=== PATIENT | female | born 1940 | race Two or more races ===

== ENCOUNTER 2025-05-14 19:25 | Inpatient (IN) | payer OTHER ==
[~2025-05-14] VITALS: Ht 165.1 cm; Wt 40.0 kg
[2025-05-14] MEDS: SODIUM CHLORIDE 0.9% 1,000 ML IV ONE (20:45)
[2025-05-14 21:07] LABS: Hematocrit 40.1 % (36.0-46.0); Hemoglobin 12.7 g/dL (12.2-16.2); Mean Corpuscular Hemoglobin 29.6 pg (28.0-32.0); Mean Corpuscular Volume 93.7 fL (80.0-100.0); Nucleated Red Blood Cells % 0.2 %
--- NOTE | 2025-05-14 21:18 | DVH ---
CLINICAL HISTORY: gen weak, cp, htn TECHNIQUE: Single view of the chest was obtained. COMPARISON: None FINDINGS: The heart size and pulmonary vasculature are normal. The lungs are clear. IMPRESSION: NO ACUTE CARDIOPULMONARY PROCESS.
[2025-05-14 21:34] LABS: Albumin 4.2 g/dL (3.2-4.8); Alkaline Phosphatase 67 U/L (46-116); Anion Gap 12 (5-15); BUN/Creatinine Ratio 11.7 (10.0-20.0); Calcium 9.1 mg/dL (8.7-10.4); Carbon Dioxide 24 mmol/L (20-31); Glucose 78 mg/dL (74-106); Potassium 4.3 mmol/L (3.5-5.1); Sodium 143 mmol/L (136-145); Total Protein 7.3 g/dL (5.7-8.2)
[2025-05-14 21:35] LABS: Bilirubin, Total 0.9 mg/dL (0.2-1.0)
[2025-05-14 21:38] LABS: Alanine Aminotransferase < 9 U/L (7-40); Blood Urea Nitrogen 9 mg/dL (9-23); Chloride 107 mmol/L (98-107)
[2025-05-14] MEDS: LABETALOL HCL 20 MG/4 ML VL IV ONE (22:28)
[2025-05-14 23:53] LABS: Urine Protein, UAD Negative (Negative)
[2025-05-15] VITALS (8 sets, daily range): BP systolic 149–209; BP diastolic 65–81; PULSE 58–67; RESP 16–20; TEMP 97.6–98.9; O2SAT 92–100
[2025-05-15] MEDS: LABETALOL HCL 20 MG/4 ML VL IV ONE (00:02)
[2025-05-15] MEDS: NITROGLYCERIN 0.4 MG SL TAB SL ONE ×2 (00:13→00:15)
--- NOTE | 2025-05-15 02:36 | DVH ---
EXAM: CT HEAD WITHOUT CONTRAST INDICATION: htn dizziness TECHNIQUE: CT of the head without intravenous contrast. Radiation Dose : 1. Head: CT Dose: CTDI volume is 58.89 mGy. Dose-length product is 1042.67 mGy*cm The dose indicators for CT are the volume Computed Tomography (CT) Dose Index (CTDIvol) and the Dose Length Product (DLP), and are measured in units of mGy and mGy-cm, respectively. These indicators are not patient dose, but values generated from the CT scanner acquisition factors. The report includes radiation exposure data for exposures received during this examination. COMPARISON: None FINDINGS: Brain: No acute hemorrhage, mass effect, or cerebral edema. Mild periventricular white matter hypoden sity and global parenchymal volume loss. CSF Spaces: Mild symmetric enlargement. Bones/Soft Tissues: No acute findings. Orbits/Sinuses/Mastoids: [id number] paranasal sinus disease. The orbits and mastoids are unrem arkable. IMPRESSION: 1. No acute intracranial abnormality. 2. Sequelae of mild chronic microangiopathy. Radiation optimization: All CT scans at this facility use at least one of these dose optimization james hniques: automated exposure control mA and/or kV adjustment per patient size (includes targeted exam s where dose is matched to clinical indication) or iterative reconstruction.
[2025-05-15] MEDS ORDERED: MORPHINE SULFATE INJ 2 MG/ml SYRG IV PRN (02:45)
[2025-05-15] MEDS ORDERED: DOCUSATE SOD 100 MG CAP PO PRN (02:45)
[2025-05-15] MEDS ORDERED: ACETAMINOPHEN 325 MG TAB PO PRN (02:45)
[2025-05-15] MEDS ORDERED: ONDANSETRON HCL 4 MG/2 ML VIAL IV PRN (02:45)
[2025-05-15] MEDS ORDERED: MELATONIN 5 MG TAB PO PRN (02:45)
[2025-05-15] MEDS ORDERED: NITROGLYCERIN 0.4 MG SL TAB SL PRN (02:45)
[2025-05-15 04:19] LABS: Hematocrit 34.0 % (36.0-46.0); Hemoglobin 11.1 g/dL (12.2-16.2); Mean Corpuscular Hemoglobin 30.2 pg (28.0-32.0); Mean Corpuscular Volume 92.7 fL (80.0-100.0); Nucleated Red Blood Cells % 0.2 %
[2025-05-15 04:34] LABS: Anion Gap 11 (5-15); Carbon Dioxide 25 mmol/L (20-31); Sodium 145 mmol/L (136-145)
[2025-05-15 04:36] LABS: Calcium 8.7 mg/dL (8.7-10.4)
[2025-05-15 04:37] LABS: Chloride 109 mmol/L (98-107); Potassium 3.4 mmol/L (3.5-5.1)
[2025-05-15 04:40] LABS: BUN/Creatinine Ratio 14.3 (10.0-20.0); Blood Urea Nitrogen 10 mg/dL (9-23); Glucose 102 mg/dL (74-106)
[2025-05-15] MEDS: FAMOTIDINE (10MG/ML) 2ML VL IV SCH (09:01)
[2025-05-15] MEDS: hydrALAZINE HCL 20 MG/ML VL IV PRN (09:01)
[2025-05-15] MEDS: ATORVASTATIN 20 MG TAB PO SCH (09:02)
[2025-05-15] MEDS: ENOXAPARIN SOD 30 MG/0.3 ML SYRINGE SC SCH (09:04)
--- NOTE | 2025-05-15 11:26 | ED.PDOC ---
HPI (NEURO) HPI Comments 84-year-old female who presents to the ED for chief complaint of generalized weakness. Patient states she has been having generalized weakness for the past one month stating it has been getting worse and states I can not do anything patient states that whenever she attempts to sit up from a supine position she is having difficulty and associated weakness. Patient otherwise states that she has been having chest pressure episodes intermittently but states they do not last long. Patient otherwise has noted history of hypertension but states she did not take her medication today as she states she takes it later tonight. Patient in the ED presents in wheelchair but is otherwise alert and oriented x4 and able to answer all questions. Patient otherwise denies any other symptoms Past Medical history: Hypertension, hyperlipidemia Past Surgical history: Hysterectomy Medications:Simvastatin Social history: denies EOTH, denies tobacco use, denies drug use Allergies: Denies HPI: Poor Historian. REVIEW OF SYSTEMS: CONSTITUTIONAL: Denies acute: fever, diaphoresis, chills, HEAD: Denies acute: headache, photophobia Eyes: Denies acute: Double vision, vision loss, eye pain, eye discharge. EARS: Denies acute: tinnitus, hearing loss, ear discharge, ear pain, THROAT: Denies acute: sore throat, swelling, difficulty swallowing , pain with swallowing, change in voice. NECK: Denies acute: neck pain, neck swelling, stiff neck. HEART: Denies acute : palpitations, LUNGS: Denies acute: SOB, wheezing, cough, hemoptysis ABDOMEN: Denies acute: abdominal pain, Nausea, Vomiting, diarrhea, melena , hematemesis, hematochezia SKIN: Denies acute: rash, redness, lesions, itchiness. EXTREMITIES: Denies acute: calf pain, numbness, tingling, weakness, denies pain in extremity. Denies acute: Low back pain. Neuro: Denies acute: focal neurological deficit, motor or sensory focal neurological deficit, tremors, seizure like activity, confusion, dizziness, change in mental status, loss of bowel or bladder function, cauda equina like symptoms. : Denies acute: dysuria, hematuria, flank pain, increase in urinary frequency. PSYCH: Denies acute: hallucination, suicidal ideation, homicidal ideation. FEMALE: Denies acute: abnormal vaginal bleeding, foul odor, unusual discharge. PHYSICAL EXAM: General: -----no---acute distress, awake and alert. Head: normocephalic, atraumatic. Neck: supple, trachea is midline, no swelling. Throat: Normal phonation. Eyes:, no erythema, no purulent discharge, no proptosis, no icterus. Heart: regular rate, regular rhythm, no significant murmur appreciated. Lungs: no apparent respiratory distress, Able to speak in full sentences. No wheezing, no rhonchi, no crackles. No stridors Clear to auscultation bilaterally. Abdomen: non tender to palpation, non distended, soft, no guarding, no rebound, + bowel sounds. Neuro: Awake, Alert, oriented to name, self, situation, follows commands GCS=15. Speech is normal. Skin: no petechia, no purpura, no cyanosis, non-pale, not jaundice. Lower extremities: --no - Pitting edema no deformity, no focal swelling, no calf TTP. Makes eye contact. moves all four extremities. Face: no apparent facial droop. ED COURSE: DISCLAIMER: This medical document was created using an electronic medical record system with voice recognition software and computerized dictation system. Although this document has been carefully reviewed, there might still be some phonetic and typographical errors. Occasional wrong-word or "sound-alike" substitutions may have occurred due to the inherent limitations of voice recognition software. These areas are purely typographical due to imperfections of the software programs and do not reflect any compromise in the patient's medical care. Please read the chart carefully and recognize, using context, where these substitutions have occurred. 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 Was a procedure done?: No Differential Diagnosis (SZ) CVA: Other (As far as chest pain: Ddx include but not limitied to gastritis, musculoskeletal pain, radiculopathy, atypical chest pain, dissection, aneurysm, ACS, unstable angina, hiatal hernia, GERD, anxiety, costochondritis, PE, pneumothroax, neoplasm, cardiac ischemia, drug abuse, anemia.) General Weakness: Anemia, CVA, Dehydration, Dysrhythmia, Electrolyte imbalance, Encephalopathy, Guillain-[place], Hypoglycemia, Hypotension, Hypovolemia, Labyrinthitis, Meniere's disease, Myasthenia gravis, Myocardial infarction, Pulmonary embolus, Renal failure, Repiratory failure, TIA, VBI, Vertigo: central, Vertigo: peripheral, Vestibular neuronitis, Other (Includes but not limited to thyroid disease, encephalopathy, electrolyte abnormality, sepsis, infection, intracranial pathology, drug adverse effects, arrhythmia, kidney insufficiency, ACS, CVA, malignancy, anemia) X-Ray, Labs, Meds, VS Vital Signs Date Time Temp Pulse Resp B/P (MAP) Pulse Ox O2 Delivery O2 Flow Rate FiO2 05/15/25 02:00 61 13 141/61 (87) 100 05/15/25 01:05 148/65 05/15/25 01:02 59 148/65 05/15/25 00:13 188/76 05/15/25 00:02 61 188/76 05/15/25 00:00 61 12 188/76 (113) 98 05/14/25 23:28 65 186/83 05/14/25 22:28 67 244/92 05/14/25 22:23 Room Air* 0 21 05/14/25 22:23 97.7 61 12 244/92 (142) 98 97.7 05/14/25 19:28 98.9 66 18 195/119 98 98.9 Lab Test 05/14/25 23:30 05/14/25 21:59 05/14/25 20:55 Range/Units Urine Color Colorless Yellow Urine Clarity Clear Clear Urine pH 6.0 5.0-9.0 Urine Specific [place] 1.003 1.001-1.035 Urine Protein Negative Negative Urine Ketones Negative Negative Urine Blood Negative Negative /uL Urine Nitrite Negative Negative Urine Bilirubin Negative Negative Urine Urobilinogen Normal Negative mg/dL Urine Leukocyte Esterase Trace Negative /uL Urine RBC None seen 0 - 4 /hpf Urine Microscopic WBC 1 0-5 /HPF Urine Squamous Epithelial Cells Few <5 /hpf Urine Bacteria None seen None Seen /hpf Urine Glucose Normal Normal mg/dL Troponin I High Sensitivity 5 6 </=34 ng/L White Blood Count 3.9 L 4.4-10.8 10^3/uL Red Blood Count 4.28 4.0-5.20 10^6/uL Hemoglobin 12.7 12.2-16.2 g/dL Hematocrit 40.1 36.0-46.0 % Mean Corpuscular Volume 93.7 80.0-100.0 fL Mean Corpuscular Hemoglobin 29.6 28.0-32.0 pg Mean Corpuscular Hemoglobin Concent 31.6 L 32.0-36.0 g/dL Red Cell Distribution Width 13.2 11.8-14.3 % Platelet Count 108 L 140-450 10^3/uL Mean Platelet Volume 10.8 6.9-10.8 fL Neutrophils (%) (Auto) 34.6 L 37.0-80.0 % Lymphocytes (%) (Auto) 50.0 10.0-50.0 % Monocytes (%) (Auto) 9.6 0.0-12.0 % Eosinophils (%) (Auto) 4.7 0.0-7.0 % Basophils (%) (Auto) 1.1 0.0-2.0 % Neutrophils # (Auto) 1.3 L 1.6-8.6 10 ^3/uL Lymphocytes # (Auto) 2.0 0.4-5.4 10 ^3/uL Monocytes # (Auto) 0.4 0-1.3 10 ^3/uL Eosinophils # (Auto) 0.2 0-0.8 10 ^3/uL Basophils # (Auto) 0 0-0.2 10 ^3/uL Nucleated Red Blood Cells 0.2 % Sodium Level 143 136-145 mmol/L Potassium Level 4.3 3.5-5.1 mmol/L Chloride Level 107 98-107 mmol/L Carbon Dioxide Level 24 20-31 mmol/L Anion Gap 12 5-15 Blood Urea Nitrogen 9 9-23 mg/dL Creatinine 0.77 0.550-1.02 mg/dL Glomerular Filtration Rate Calc 77 >90 mL/min BUN/Creatinine Ratio 11.7 10.0-20.0 Serum Glucose 78 74-106 mg/dL Lactic Acid Level 1.1 0.4-2.0 mmol/L Calcium Level 9.1 8.7-10.4 mg/dL Total Bilirubin 0.9 0.2-1.0 mg/dL Aspartate Amino Transferase (AST) 22 13-40 U/L Alanine Aminotransferase (ALT) < 9 7-40 U/L Alkaline Phosphatase 67 46-116 U/L Total Protein 7.3 5.7-8.2 g/dL Albumin 4.2 3.2-4.8 g/dL [place] [id number] Ph: [phone] DIAGNOSTIC IMAGING Diagnostic Imaging Report : [id number] Signed PATIENT: PEDRO MCKINLEY ACCT: [id number] UNIT: [id number] : 1940 LOC: ER ROOM / BED: / AGE / SEX: 84 / F ADM STATUS: REG ER SERVICE 32 ORDERING PHYSICIAN: ART CEE DO PROCEDURE(s): CXRP - CHEST PORTABLE REASON: gen weak, cp, htn ORDER NUMBER(s): [id number], ACCESSION NUMBER(s): [id number] CLINICAL HISTORY: gen weak, cp, htn TECHNIQUE: Single view of the chest was obtained. COMPARISON: None FINDINGS: The heart size and pulmonary vasculature are normal. The lungs are clear. IMPRESSION: NO ACUTE CARDIOPULMONARY PROCESS. ATED BY: MATT JUNG MD DICTATED DATE/TIME: 05/14/252114 SIGNED BY: MATT JUNG MD SIGNED DATE/TIME: 05/14/252114 CC: Time of 1ST Reevaluation: 21:40 Reevaluation 1ST: Unchanged Time of 2ND Reevaluation: 00:39 (The case was discussed with the admitting team (HPI, physical exam, labs and diagnostic tests that were available at the time of disposition, ED course, treatment plan) on the phone. They agreed to admit the patient to their service and assume care of this patient from this point forward. IGOR Orellana. ) Patient Education/Counseling: Diagnosis, Treatment Family Education/Counseling: Other Comments MDM: patient presented with the above HPI.-hypertensive crisis--and chest pain---workup was initiated. patient was found with the above mentioned diag nosis. the following medications were ordered: please refer to order lists of meds and tests obtained by myself Dr. Cee. Patient ED course and VS have been stabilized. Patient has been reassessed in the ED and remained in a stable condition. Pertinent incidental findings were discussed with the patient and/or family. Patient/family voices understanding and is agreeable with plan. Patient has been observed in the ED adequate length of time to insure improvement/stability. Escalation of care considered: Consideration of escalation to observation or admission Patient was given multiple nitroglycerin sublingually and two boluses of labetalol IV for blood pressure control. Patient is very weak unable to get out of her chair. Patient was ADMITTED to the medicine team for further evaluation and treatment of their presentation. All the reports of any imaging studies that were ordered by myself were reviewed by myself. Departure 1 Departure Time of Disposition: 21:47 Impression: Primary Impression: Hypertensive urgency Additional Impressions: Generalized weakness Chest pain Disposition: ADMITTED INPATIENT Admit to: [facility] Condition: Guarded Discharged With: Self Critical Care Note Critical Care Time?: Yes (45 min-critical care time only) Stability Stability form required: No Heart Score Heart Score: Heart Score Response (Comments) Value History Slightly Suspicious 0 EKG Normal 0 Age >65 2 Risk Factors 1 or 2 risk factors 1 Troponin Normal limit 0 Total 3 I personally scribed for ART CEE DO ([email or web address]) on 05/14/25 at 21:09. Electronically submitted by Crow Zhou ([email or web address]). I personally scribed for ART CEE DO ([email or web address]) on 05/14/25 at 21:24. Electronically submitted by Crow Zhou ([email or web address]). ART CEE DO May 14, 2025 21:09
--- NOTE | 2025-05-15 11:37 | DVHHP2 ---
SANGEETA FLANNERY NP 05/15/25 0300: History of Present Illness Reason for Visit: Generalized weakness History of Present Illness Information in this HPI is acquired with the assistance of the patient's grandson, SOURAV via telephone. 84-year-old female with past medical history of hypertension, hyperlipidemia presents with complaints of worsening, generalized weakness over the previous month. Patient endorsed she has been having difficulty getting up. Is also endorsing dizziness. As per the patient's grandson, the patient is currently taking Donepezil 5 mg, simvastatin 20 mg, trazodone 50 mg, Zyrtec and acetaminophen. States he is unable to find any additional medication at the patient's home at this time. The patient states she takes her blood pressure medication's at night. However, does not know what medication she is on. While in the emergency department, the patient's blood pressure was noted to be 244/92 with a heart rate 61. Patient also endorsed chest pressure. For which she was treated with IV Labetolol and sublingual nitroglycerin with improvement. During the emergency department evaluation, CBC is unremarkable. CMP is unremarkable. Troponin negative X2 6/5. CT of the head was added due to the dizziness, which is negative for acute intracranial abnormality. At this time, the patient denies fevers, chills, shortness of breath, palpitations, nausea, vomiting, leg, swelling. Cardiovascular: HTN, hyperipidemia Smoke: No ALCOHOL: none Drugs: None Lives: with Family Review of Systems Constitutional: Yes: Weakness; No: Fever, Chills, Sweats, Malaise, Other Eyes: No: Pain, Vision change, Conjunctivae inflammation, Eyelid inflammation, Other, Redness ENT: No: Ear pain, Ear discharge, Nose pain, Nose discharge, Nose congestion, Mouth pain, Mouth swelling, Throat pain, Throat swelling, Other Respiratory: No: Cough, Dry, Shortness of breath, SOB with excertion, Wheezing, Hemoptysis, Pleuritic Pain, Sputum, Wheezing, Other Cardiovascular: Chest Pain, Lt Headedness; No: Palpitations, Orthopnea, Paroxysmal Noc. Dyspnea, Edema, Other Gastrointestinal: No: Nausea, Vomiting, Abdominal Pain, Diarrhea, Constipation, Melena, Hematochezia, Other Genitourinary: No Dysuria, No Frequency, No Incontinence, No Hematuria, No Retention, No Other Musculoskeletal: No: other, neck pain, shoulder pain, arm pain, back pain, hand pain, leg pain, foot pain Skin: No: Rash, Lesions, Jaundice, Bruising, Other Neurological: Weakness; No: Numbness, Incoordination, Change in speech, Co nfusion, Seizures, Other Allergies: Coded Allergies: No Known Drug Allergy (Verified Allergy, Unknown, 05/15/25) Medications Current Medications Medications Dose Ordered Sig/Sakshi Route Start Time Stop Time Status Last Admin Dose Admin Docusate Sodium 100 mg BIDPRN PRN PO 05/15/25 02:45 UNV Acetaminophen 650 mg Q6HP PRN PO 05/15/25 02:45 UNV Ondansetron HCl 4 mg Q4HP PRN IV 05/15/25 02:45 UNV Enoxaparin Sodium 30 mg DAILY SC 05/15/25 10:00 UNV Nitroglycerin 0.4 mg Q5MINP PRN SL 05/15/25 02:45 UNV Morphine Sulfate 2 mg Q30M PRN IV 05/15/25 02:45 UNV Donepezil HCl 5 mg QPM PO 05/15/25 18:00 UNV Melatonin 5 mg QHSP PRN PO 05/15/25 02:45 UNV Hydralazine HCl 10 mg Q4HP PRN IV 05/15/25 02:45 UNV Clonidine HCl 0.1 mg BIDP PRN PO 05/15/25 02:45 UNV Exam Vital Signs Vital Signs Date Time Temp Pulse Resp B/P (MAP) Pulse Ox O2 Delivery O2 Flow Rate FiO2 05/15/25 01:05 148/65 05/15/25 01:02 59 05/15/25 00:00 12 98 05/14/25 22:23 Room Air* 0 21 05/14/25 22:23 97.7 97.7 General Appearance: Alert, Oriented X3, Cooperative, mild distress HEENT: Atraumatic, PERRLA Respiratory: Clear to auscultation, Normal air movement Cardiovascular: Regular rate, Normal S1, Normal S2 Abdominal: Normal bowel sounds, Soft Extremities: No clubbing, No cyanosis, No edema Skin: No rashes Neuro: Normal speech, Strength at 5/5 X4 ext Psych/Mental Status: Mental status NL, Mood NL Labs/Xrays Labs Test 05/14/25 23:30 05/14/25 21:59 05/14/25 20:55 Range/Units Urine Color Colorless Yellow Urine Clarity Clear Clear Urine pH 6.0 5.0-9.0 Urine Specific [employer] 1.003 1.001-1.035 Urine Protein Negative Negative Urine Ketones Negative Negative Urine Blood Negative Negative /uL Urine Nitrite Negative Negative Urine Bilirubin Negative Negative Urine Urobilinogen Normal Negative mg/dL Urine Leukocyte Esterase Trace Negative /uL Urine RBC None seen 0 - 4 /hpf Urine Microscopic WBC 1 0-5 /HPF Urine Squamous Epithelial Cells Few <5 /hpf Urine Bacteria None seen None Seen /hpf Urine Glucose Normal Normal mg/dL Troponin I High Sensitivity 5 </=34 ng/L White Blood Count 3.9 L 4.4-10.8 10^3/uL Red Blood Count 4.28 4.0-5.20 10^6/uL Hemoglobin 12.7 12.2-16.2 g/dL Hematocrit 40.1 36.0-46.0 % Mean Corpuscular Volume 93.7 80.0-100.0 fL Mean Corpuscular Hemoglobin 29.6 28.0-32.0 pg Mean Corpuscular Hemoglobin Concent 31.6 L 32.0-36.0 g/dL Red Cell Distribution Width 13.2 11.8-14.3 % Platelet Count 108 L 140-450 10^3/uL Mean Platelet Volume 10.8 6.9-10.8 fL Neutrophils (%) (Auto) 34.6 L 37.0-80.0 % Lymphocytes (%) (Auto) 50.0 10.0-50.0 % Monocytes (%) (Auto) 9.6 0.0-12.0 % Eosinophils (%) (Auto) 4.7 0.0-7.0 % Basophils (%) (Auto) 1.1 0.0-2.0 % Neutrophils # (Auto) 1.3 L 1.6-8.6 10 ^3/uL Lymphocytes # (Auto) 2.0 0.4-5.4 10 ^3/uL Monocytes # (Auto) 0.4 0-1.3 10 ^3/uL Eosinophils # (Auto) 0.2 0-0.8 10 ^3/uL Basophils # (Auto) 0 0-0.2 10 ^3/uL Nucleated Red Blood Cells 0.2 % Sodium Level 143 136-145 mmol/L Potassium Level 4.3 3.5-5.1 mmol/L Chloride Level 107 98-107 mmol/L Carbon Dioxide Level 24 20-31 mmol/L Anion Gap 12 5-15 Blood Urea Nitrogen 9 9-23 mg/dL Creatinine 0.77 0.550-1.02 mg/dL Glomerular Filtration Rate Calc 77 >90 mL/min BUN/Creatinine Ratio 11.7 10.0-20.0 Serum Glucose 78 74-106 mg/dL Lactic Acid Level 1.1 0.4-2.0 mmol/L Calcium Level 9.1 8.7-10.4 mg/dL Total Bilirubin 0.9 0.2-1.0 mg/dL Aspartate Amino Transferase (AST) 22 13-40 U/L Alanine Aminotransferase (ALT) < 9 7-40 U/L Alkaline Phosphatase 67 46-116 U/L Total Protein 7.3 5.7-8.2 g/dL Albumin 4.2 3.2-4.8 g/dL SEPSIS Sepsis Screen Date sepsis recognized/suspect: May 14, 2025 Time Sepsis recognized/suspect: 2222 Recent Procedure: No On Antibiotic Therapy: No Respiratory Rate >20: No Heart Rate >90: No Temp<36 C (96.8 F) or >38.3 C: No SBP <90 or MAP <65 mmHG: No New Acute Mental Status Change: No Is the patient on CPAP, BIPAP,: No Physician Orders Floor Layer (05/14/25 ) Chest Portable (05/14/25 20:33) Electrocardigram (05/14/25 20:33) Head Without Contrast (05/15/25 01:37) Admit (05/15/25 02:44) Code Status (05/15/25 02:44) Vital Signs .PER UNIT PROTOCOL (05/15/25 02:44) Review Orders With Adm.Md (05/15/25 02:44) Encourage Activity As Tolerate (05/15/25 02:44) Oxygen By Face Mask (05/15/25 02:44) Docusate Sodium Capsule (Colace Capsule) (05/15/25 02:45) Acetaminophen Tablet (Tylenol Tablet) (05/15/25 02:45) Notify Md Of Changes From Base (05/15/25 02:44) Advance Directive (05/15/25 02:44) Basic Metabolic Panel (05/15/25 05:00) Basic Metabolic Panel (05/16/25 05:00) Basic Metabolic Panel (05/17/25 05:00) Complete Blood Count (05/15/25 05:00) Complete Blood Count (05/16/25 05:00) Complete Blood Count (05/17/25 05:00) Patient Condition (05/15/25 02:44) Allergies (05/15/25 02:44) Ondansetron Hcl (Zofran) (05/15/25 02:45) Enoxaparin Sodium (Lovenox) (05/15/25 10:00) Sequential Compression Device (05/15/25 ) Nitroglycerin Sublingual (Ntrostat Subli (05/15/25 02:45) Morphine Sulfate Injection (05/15/25 02:45) Stat Ekg For Chest Pain (05/15/25 02:44) Notify Md Of Changes From Base (05/15/25 02:44) Labor Relations Specialist For 24 Hours (05/15/25 02:44) Emergency Dysrhythmia Protocol (05/15/25 02:44) Rhythm Strips Once Every Shift (05/15/25 02:44) Oxygen By Nasal Cannula (05/15/25 02:44) Donepezil Tablet (Aricept Tablet) (05/15/25 18:00) Melatonin (Melatonin) (05/15/25 02:45) Hydralazine Injection (Apresoline Inject (05/15/25 02:45) Clonidine Hcl Tablet (Catapres Tablet) (05/15/25 02:45) * Cardiology Consult (05/15/25 02:44) Pt Request For Service (05/15/25 02:44) Echo 2d Mode Cardiac Dop (05/15/25 02:44) * Tablet Machine Operator Consult (05/15/25 ) Atorvastatin (Lipitor) (05/15/25 10:00) Vital Signs Date Time Temp Pulse Resp B/P (MAP) Pulse Ox O2 Delivery O2 Flow Rate FiO2 05/15/25 01:05 148/65 05/15/25 01:02 59 148/65 05/15/25 00:13 188/76 05/15/25 00:02 61 188/76 05/15/25 00:00 61 12 188/76 (113) 98 05/14/25 23:28 65 186/83 05/14/25 22:28 67 244/92 05/14/25 22:23 Room Air* 0 21 05/14/25 22:23 97.7 61 12 244/92 (142) 98 97.7 05/14/25 19:28 98.9 66 18 195/119 98 98.9 Laboratory Tests Test 05/14/25 20:55 Lactic Acid Level 1.1 mmol/L (0.4-2.0) White Blood Count 3.9 10^3/uL (4.4-10.8) L Medications Medications Dose Ordered Sig/Sakshi Route Start Time Stop Time Status Last Admin Dose Admin Labetalol HCl 5 mg ONCE ONCE IV 05/14/25 20:45 05/14/25 20:46 DC 05/14/25 22:28 5 MG Labetalol HCl 5 mg ONCE ONCE IV 05/15/25 00:02 05/15/25 00:07 DC 05/15/25 00:02 5 MG Nitroglycerin 0.4 mg ONCE ONCE SL 05/14/25 20:45 05/14/25 20:46 DC 05/15/25 00:13 0.4 MG Assessment/Plan Assessment/Plan Hypertensive urgency Chest pain Dizziness Generalized weakness Plan Admit telemetry Cardiology consult. Echocardiogram. As needed antihypertensive. Start antihypertensive agent. Orthostatic vital signs. MRI Brain Physical therapy evaluation. Social service Consult GI ppx pepcid / DVT ppx lovenox Plan discussed with: Patient, Other (G) My Orders Orders - SANGEETA FLANNERY NP Procedure Category Date Status Time Head Without Contrast CT 05/15/25 Resulted 01:37 Admit ADMIT 05/15/25 Transmitted 02:44 Code Status CODE 05/15/25 Transmitted 02:44 Vital Signs JAME 05/15/25 In Process 02:44 Review Orders With JAME 05/15/25 In Process Adm. 02:44 Encourage Activity As JAME 05/15/25 In Process Tolerate 02:44 Oxygen By Face Mask RT 05/15/25 Transmitted 02:44 Docusate Sodium PHA 05/15/25 Logged Capsule (Colace 02:45 Acetaminophen Tablet PHA 05/15/25 Logged (Tylenol Tablet) 02:45 Notify Of Changes JAME 05/15/25 In Process From Base 02:44 Advance Directive [facility] 05/15/25 In Process 02:44 Basic Metabolic Panel LAB 05/15/25 Logged 05:00 Basic Metabolic Panel LAB 05/16/25 Verified 05:00 Basic Metabolic Panel LAB 05/17/25 Verified 05:00 Complete Blood Count LAB 05/15/25 Logged 05:00 Complete Blood Count LAB 05/16/25 Verified 05:00 Complete Blood Count LAB 05/17/25 Verified 05:00 Patient Condition ORDERS 05/15/25 Transmitted 02:44 Allergies [facility] 05/15/25 In Process 02:44 Ondansetron Hcl [facility] 05/15/25 Logged (Zofran) 02:45 Enoxaparin Sodium [facility] 05/15/25 Logged (Lovenox) 10:00 Sequential [facility] 05/15/25 In Process Compression Device Nitroglycerin [facility] 05/15/25 Logged Sublingual (Ntrostat 02:45 Morphine Sulfate PHA 05/15/25 Logged Injection 02:45 Stat Ekg For Chest [facility] 05/15/25 In Process Pain 02:44 Notify Md Of Changes [facility] 05/15/25 In Process From Base 02:44 Labor Relations Specialist For [facility] 05/15/25 In Process 24 Hours 02:44 Emergency Dysrhythmia [facility] 05/15/25 In Process Protocol 02:44 Rhythm Strips Once [facility] 05/15/25 In Process Every Shift 02:44 Oxygen By Nasal RT 05/15/25 Transmitted Cannula 02:44 Donepezil Tablet [facility] 05/15/25 Logged (Aricept Tablet) 18:00 Melatonin (Melatonin) PHA 05/15/25 Logged 02:45 Hydralazine Injection [facility] 05/15/25 Logged (Apresoline Inject 02:45 Clonidine Hcl Tablet [facility] 05/15/25 Logged (Catapres Tablet) 02:45 * Cardiology Consult CONS 05/15/25 Transmitted 02:44 Pt Request For Service PT 05/15/25 Logged 02:44 Echo 2d Mode Cardiac US 05/15/25 Logged DOP 02:44 * Tablet Machine Operator CONS 05/15/25 Transmitted Consult Atorvastatin (Lipitor) PHA 05/15/25 Logged 10:00 Date of Service: May 15, 2025 Billing Provider: AUGUST GODINEZ MD Common Visit Codes: NOT BILLABLE AUGUST GODINEZ MD 05/15/25 1441: Review of Systems Allergies: Coded Allergies: No Known Drug Allergy (Verified Allergy, Unknown, 05/15/25) Additional Comments Additional Comments Additional Comments Patient is seen and evaluated by me earlier today. Patient is seen and evaluated admitted by nurse practitioner this morning. I agree with his evaluation, documentation, assessment and care plan as outlined. SANGEETA FLANNERY NP May 15, 2025 03:00 AUGUST GODINEZ MD May 15, 2025 14:41
--- NOTE | 2025-05-15 12:14 | DVHINCON2 ---
Date Seen: May 15, 2025 Referring Physician IGOR Pathak Reason for Consultation Hypertensive urgency History of Present Illness This is an 84-year-old female patient who presents to the emergency room with chief complaint of generalized weakness and dizziness as well as headache and blurry vision for approximately one month. She comes to the emergency room for further evaluation. Cardiology has been consulted at this time for hypertensive urgency. The patient came to the emergency room with blood pressures reaching as high as 244/92. No twelve lead electrocardiogram was found in patient's hard chart. A twelve lead electrocardiogram was obtained by bedside RN at time of assessment and reveals normal sinus rhythm with nonspecific T-wave changes to anterolateral leads. Troponin levels have been negative. She denies any cardiac symptoms such as chest pain, shortness of breath, or palpitations. Significant past medical history includes hypertension, dyslipidemia, asthma, dementia, tobacco use and alcohol use. The patient reports that she had a stress test in the outpatient setting approximately three years ago in which results were "normal". She states that she has not followed up with a meat cutting teacher since that time. The patient's grandson at bedside states that the patient has not been compliant with her antihypertensive medications at home. Past Medical History Past medical history reviewed. No other significant than mentioned above. Past Surgical History Hysterectomy Family History Family history reviewed. Social History The patient has a 40 pack-year history, quit smoking approximately three months ago Patient admits to previous alcohol abuse, quit approximately one month ago Denies illicit drug use Allergies: Coded Allergies: No Known Drug Allergy (Verified Allergy, Unknown, 05/15/25) Home Meds Home medications reviewed. Current Medications Current Medications Medications (Trade) Dose Ordered Sig/Sakshi Route PRN Reason Start Time Stop Time Status Last Admin Docusate Sodium (Colace Capsule) 100 mg BIDPRN PRN PO FOR CONSTIPATION 05/15/25 02:45 Acetaminophen (Tylenol Tablet) 650 mg Q6HP PRN PO PAIN SCALE 1-3 OR TEMP>100.4 05/15/25 02:45 Ondansetron HCl (Zofran) 4 mg Q4HP PRN IV NAUSEA / VOMITING 05/15/25 02:45 Enoxaparin Sodium (Lovenox) 30 mg DAILY SC 05/15/25 10:00 05/15/25 09:04 Nitroglycerin (Ntrostat Sublingual) 0.4 mg Q5MINP PRN SL FOR CHEST PAIN 05/15/25 02:45 Morphine Sulfate 2 mg Q30M PRN IV FOR CHEST PAIN 05/15/25 02:45 Donepezil HCl (Aricept Tablet) 5 mg QPM PO 05/15/25 18:00 Melatonin (Melatonin) 5 mg QHSP PRN PO Sleep 05/15/25 02:45 Hydralazine HCl (Apresoline Injection) 10 mg Q4HP PRN IV SBP > 160 05/15/25 02:45 05/15/25 09:01 Clonidine HCl (Catapres Tablet) 0.1 mg BIDP PRN PO SBP > 180 05/15/25 02:45 Atorvastatin Calcium (Lipitor) 10 mg DAILY PO 05/15/25 10:00 05/15/25 09:02 Famotidine (Pepcid Injection) 20 mg DAILY IV 05/15/25 10:00 05/15/25 09:01 Review of Systems Constitutional: Generalized weakness Ears, Nose, & Throat: No symptom reported Eyes: No symptom reported Neurological: Dizziness Pulmonary/Respiratory: No symptoms reported Cardiovascular: No symptom reported Gastrointestinal: No symptom reported Genitourinary: No symptom reported Musculoskeletal: No symptom reported Skin: No symptom reported Psychiatric: No symptom reported Endocrine: No symptom reported Hematologic/Lymphatic: No symptom reported Vital Signs Vital Signs Date Time Temp Pulse Resp B/P (MAP) Pulse Ox O2 Delivery O2 Flow Rate FiO2 05/15/25 09:01 209/81 05/15/25 09:00 98.3 61 16 98 98.3 05/15/25 04:46 Room Air* 0 21 Physical Exam General Appearance: Cooperative. Thin Pulmonary/Respiratory: Clear, bilateral breaths sounds. Cardiovascular/Chest: Regular rate and rhythm. Peripheral Pulses: 2+ Radial (R). 2+ Radial (L). 2+ Pedal (R). 2+ Pedal (L) Abdominal Exam: Normal bowel sounds. Ankle Exam: Negative ankle edema Lower extremities: Negative lower extremity edema Neuro/Mental Status: A/OX4, coherent. Thoughts/Psych: Normal thought pattern. Appropriate mood and affect. Good judgment and insight. Appearance: No acute distress. Skin Exam: Normal inspection. Normal color. Warm and dry. Labs/Diagnostic Data Labs Test 05/15/25 04:00 05/14/25 23:30 05/14/25 21:59 05/14/25 20:55 Range/Units White Blood Count 3.9 L 4.4-10.8 10^3/uL Red Blood Count 3.67 L 4.0-5.20 10^6/uL Hemoglobin 11.1 L 12.2-16.2 g/dL Hematocrit 34.0 #L 36.0-46.0 % Mean Corpuscular Volume 92.7 80.0-100.0 fL Mean Corpuscular Hemoglobin 30.2 28.0-32.0 pg Mean Corpuscular Hemoglobin Concent 32.5 32.0-36.0 g/dL Red Cell Distribution Width 12.7 11.8-14.3 % Platelet Count 111 L 140-450 10^3/uL Mean Platelet Volume 11.4 H 6.9-10.8 fL Neutrophils (%) (Auto) 41.2 37.0-80.0 % Lymphocytes (%) (Auto) 40.6 10.0-50.0 % Monocytes (%) (Auto) 11.6 0.0-12.0 % Eosinophils (%) (Auto) 5.7 0.0-7.0 % Basophils (%) (Auto) 0.9 0.0-2.0 % Neutrophils # (Auto) 1.6 1.6-8.6 10 ^3/uL Lymphocytes # (Auto) 1.6 0.4-5.4 10 ^3/uL Monocytes # (Auto) 0.5 0-1.3 10 ^3/uL Eosinophils # (Auto) 0.2 0-0.8 10 ^3/uL Basophils # (Auto) 0 0-0.2 10 ^3/uL Nucleated Red Blood Cells 0.2 % Sodium Level 145 136-145 mmol/L Potassium Level 3.4 L 3.5-5.1 mmol/L Chloride Level 109 H 98-107 mmol/L Carbon Dioxide Level 25 20-31 mmol/L Anion Gap 11 5-15 Blood Urea Nitrogen 10 9-23 mg/dL Creatinine 0.70 0.550-1.02 mg/dL Glomerular Filtration Rate Calc 86 >90 mL/min BUN/Creatinine Ratio 14.3 10.0-20.0 Serum Glucose 102 74-106 mg/dL Calcium Level 8.7 8.7-10.4 mg/dL Urine Color Colorless Yellow Urine Clarity Clear Clear Urine pH 6.0 5.0-9.0 Urine Specific [employer] 1.003 1.001-1.035 Urine Protein Negative Negative Urine Ketones Negative Negative Urine Blood Negative Negative /uL Urine Nitrite Negative Negative Urine Bilirubin Negative Negative Urine Urobilinogen Normal Negative mg/dL Urine Leukocyte Esterase Trace Negative /uL Urine RBC None seen 0 - 4 /hpf Urine Microscopic WBC 1 0-5 /HPF Urine Squamous Epithelial Cells Few <5 /hpf Urine Bacteria None seen None Seen /hpf Urine Glucose Normal Normal mg/dL Troponin I High Sensitivity 5 </=34 ng/L Lactic Acid Level 1.1 0.4-2.0 mmol/L Total Bilirubin 0.9 0.2-1.0 mg/dL Aspartate Amino Transferase (AST) 22 13-40 U/L Alanine Aminotransferase (ALT) < 9 7-40 U/L Alkaline Phosphatase 67 46-116 U/L Total Protein 7.3 5.7-8.2 g/dL Albumin 4.2 3.2-4.8 g/dL Assessment Hypertensive urgency Rule out structural heart disease Dyslipidemia Hypokalemia Borderline thrombocytopenia Dementia Medication noncompliance History of tobacco use Plan/Recommendation We will continue with the following plan/recommendations () * Transthoracic echocardiogram to evaluate cardiac function * Aggressive blood pressure control as tolerated * Renal ultrasound * Lipid-lowering agent * Monitor and replete electrolytes as needed * Close cardiac surveillance Thank you for allowing us to care for this patient. Please call with any questions or concerns. Critical care time spent: 44 minutes This medical document was created using an electronic medical record system with voice recognition software and computerized dictation system. Although this document has been carefully reviewed, there might still be some phonetic and typographical errors. Occasional wrong-word or ``sound-alike substitutions may have occurred due to the inherent limitations of voice recognition software. These areas are purely typographical due to imperfections of the software programs and do not reflect any compromise in the patient's medical care. Please read the chart carefully and recognize, using context, where these substitutions have occurred. Plan discussed with: Patient NYHA Physical activity limitations: NA Date of Service: May 15, 2025 Billing Provider: KAREN SMALLS Cardiology Common Codes: 90467-CHLZCLB INP/OBS CARE (High) Cardiology Consultation Codes: 82550-OTBZXBCJX CONSULT <45MIN KAREN SMALLS May 15, 2025 12:14
[2025-05-15 13:58] LABS: Magnesium 2.0 mg/dL (1.6-2.6); Triglycerides 68.0 mg/dL (< 150)
[2025-05-15 14:00] LABS: Cholesterol 180.0 mg/dL (< 200); HDL Cholesterol 78.0 mg/dL (40-59)
--- NOTE | 2025-05-15 14:51 | DVHINCON2 ---
Date Seen: May 15, 2025 Referring Physician IGOR Pathak Reason for Consultation Hypertensive urgency History of Present Illness This is an 84-year-old female with a past medical history of hypertension, dyslipidemia, asthma, dementia, tobacco use and alcohol use who presents to the emergency room with chief complaint of generalized weakness and dizziness as well as headache and blurry vision for approximately one month. She comes to the emergency room for further evaluation. The patient came to the emergency room with blood pressures reaching as high as 244/92. No twelve lead electrocardiogram was found in patient's hard chart. A twelve lead electrocardiogram was obtained by bedside RN at time of assessment and reveals normal sinus rhythm with nonspecific T-wave changes to anterolateral leads. Tro ponin levels have been negative. She denies any cardiac symptoms such as chest pain, shortness of breath, or palpitations. The patient reports that she had a stress test in the outpatient setting approximately three years ago in which results were "normal". She states that she has not followed up with a gate manager since that time. The patient's grandson at bedside states that the patient has not been compliant with her antihypertensive medications at home. Chest x-ray shows NAD. Cardiology has been consulted at this time for hypertensive urgency. Past Medical History Past medical history reviewed. No other significant than mentioned above. Past Surgical History Hysterectomy Allergies: Coded Allergies: No Known Drug Allergy (Verified Allergy, Unknown, 05/15/25) Current Medications Current Medications Medications (Trade) Dose Ordered Sig/Sakshi Route PRN Reason Start Time Stop Time Status Last Admin Docusate Sodium (Colace Capsule) 100 mg BIDPRN PRN PO FOR CONSTIPATION 05/15/25 02:45 Acetaminophen (Tylenol Tablet) 650 mg Q6HP PRN PO PAIN SCALE 1-3 OR TEMP>100.4 05/15/25 02:45 Ondansetron HCl (Zofran) 4 mg Q4HP PRN IV NAUSEA / VOMITING 05/15/25 02:45 Enoxaparin Sodium (Lovenox) 30 mg DAILY SC 05/15/25 10:00 05/15/25 09:04 Nitroglycerin (Ntrostat Sublingual) 0.4 mg Q5MINP PRN SL FOR CHEST PAIN 05/15/25 02:45 Morphine Sulfate 2 mg Q30M PRN IV FOR CHEST PAIN 05/15/25 02:45 Donepezil HCl (Aricept Tablet) 5 mg QPM PO 05/15/25 18:00 Melatonin (Melatonin) 5 mg QHSP PRN PO Sleep 05/15/25 02:45 Hydralazine HCl (Apresoline Injection) 10 mg Q4HP PRN IV SBP > 160 05/15/25 02:45 05/15/25 09:01 Clonidine HCl (Catapres Tablet) 0.1 mg BIDP PRN PO SBP > 180 05/15/25 02:45 Atorvastatin Calcium (Lipitor) 10 mg DAILY PO 05/15/25 10:00 05/15/25 09:02 Famotidine (Pepcid Injection) 20 mg DAILY IV 05/15/25 10:00 05/15/25 09:01 Review of Systems Constitutional: Generalized weakness Ears, Nose, & Throat: No symptom reported Eyes: No symptom reported Neurological: Dizziness Pulmonary/Respiratory: No symptoms reported Cardiovascular: No symptom reported Gastrointestinal: No symptom reported Genitourinary: No symptom reported Musculoskeletal: No symptom reported Skin: No symptom reported Psychiatric: No symptom reported Endocrine: No symptom reported Hematologic/Lymphatic: No symptom reported Vital Signs Vital Signs Date Time Temp Pulse Resp B/P (MAP) Pulse Ox O2 Delivery O2 Flow Rate FiO2 05/15/25 09:01 209/81 05/15/25 09:00 98.3 61 16 98 98.3 05/15/25 04:46 Room Air* 0 21 Physical Exam GENERAL: Alert and oriented x 3. No acute distress. Thin appearing. EYES: PERRL, EOMI. Anicteric. HENT: Moist mucous membranes. LUNGS: Clear to auscultation bilaterally. CARDIOVASCULAR: Regular rate and rhythm. ABDOMEN: Soft, nontender and nondistended. EXTREMITIES: No edema. NEUROLOGIC: No focal neurological deficits. SKIN: Warm, dry. Labs/Diagnostic Data Labs Test 05/15/25 04:00 05/14/25 23:30 05/14/25 21:59 05/14/25 20:55 Range/Units White Blood Count 3.9 L 4.4-10.8 10^3/uL Red Blood Count 3.67 L 4.0-5.20 10^6/uL Hemoglobin 11.1 L 12.2-16.2 g/dL Hematocrit 34.0 #L 36.0-46.0 % Mean Corpuscular Volume 92.7 80.0-100.0 fL Mean Corpuscular Hemoglobin 30.2 28.0-32.0 pg Mean Corpuscular Hemoglobin Concent 32.5 32.0-36.0 g/dL Red Cell Distribution Width 12.7 11.8-14.3 % Platelet Count 111 L 140-450 10^3/uL Mean Platelet Volume 11.4 H 6.9-10.8 fL Neutrophils (%) (Auto) 41.2 37.0-80.0 % Lymphocytes (%) (Auto) 40.6 10.0-50.0 % Monocytes (%) (Auto) 11.6 0.0-12.0 % Eosinophils (%) (Auto) 5.7 0.0-7.0 % Basophils (%) (Auto) 0.9 0.0-2.0 % Neutrophils # (Auto) 1.6 1.6-8.6 10 ^3/uL Lymphocytes # (Auto) 1.6 0.4-5.4 10 ^3/uL Monocytes # (Auto) 0.5 0-1.3 10 ^3/uL Eosinophils # (Auto) 0.2 0-0.8 10 ^3/uL Basophils # (Auto) 0 0-0.2 10 ^3/uL Nucleated Red Blood Cells 0.2 % Sodium Level 145 136-145 mmol/L Potassium Level 3.4 L 3.5-5.1 mmol/L Chloride Level 109 H 98-107 mmol/L Carbon Dioxide Level 25 20-31 mmol/L Anion Gap 11 5-15 Blood Urea Nitrogen 10 9-23 mg/dL Creatinine 0.70 0.550-1.02 mg/dL Glomerular Filtration Rate Calc 86 >90 mL/min BUN/Creatinine Ratio 14.3 10.0-20.0 Serum Glucose 102 74-106 mg/dL Calcium Level 8.7 8.7-10.4 mg/dL Urine Color Colorless Yellow Urine Clarity Clear Clear Urine pH 6.0 5.0-9.0 Urine Specific [place] 1.003 1.001-1.035 Urine Protein Negative Negative Urine Ketones Negative Negative Urine Blood Negative Negative /uL Urine Nitrite Negative Negative Urine Bilirubin Negative Negative Urine Urobilinogen Normal Negative mg/dL Urine Leukocyte Esterase Trace Negative /uL Urine RBC None seen 0 - 4 /hpf Urine Microscopic WBC 1 0-5 /HPF Urine Squamous Epithelial Cells Few <5 /hpf Urine Bacteria None seen None Seen /hpf Urine Glucose Normal Normal mg/dL Troponin I High Sensitivity 5 </=34 ng/L Lactic Acid Level 1.1 0.4-2.0 mmol/L Total Bilirubin 0.9 0.2-1.0 mg/dL Aspartate Amino Transferase (AST) 22 13-40 U/L Alanine Aminotransferase (ALT) < 9 7-40 U/L Alkaline Phosphatase 67 46-116 U/L Total Protein 7.3 5.7-8.2 g/dL Albumin 4.2 3.2-4.8 g/dL Assessment Hypertensive urgency. Rule out structural heart disease. Dyslipidemia. Hypokalemia. Borderline thrombocytopenia. Dementia. Medication noncompliance. History of tobacco use. Plan/Recommendation I agree with your ongoing assessment and care of plan. Patient has been seen by Kate Hsieh NP on my behalf, her and I discussed the plan with the patient. Transthoracic echocardiogram to evaluate cardiac function. Aggressive blood pressure control as tolerated. Renal ultrasound. Lipid-lowering agent. Monitor and replete electrolytes as needed. Close cardiac surveillance. Additional plan as per the hospital course. Plan discussed with: Patient NYHA Physical activity limitations: NA Date of Service: May 15, 2025 Billing Provider: TAJ LUCIA MD Cardiology Common Codes: 91433-[id number] INP/OBS CARE (High) Cardiology Consultation Codes: 65948-[id number] CONSULT <45MIN TAJ LUCIA MD May 15, 2025 12:27
--- NOTE | 2025-05-15 17:09 | DVH ---
RENAL DUPLEX ULTRASOUND REASON FOR EXAM: Hypertension COMPARISON: None TECHNIQUE: Grayscale imaging of both kidneys is performed. This was followed by duplex scanning of arterial inflow and venous outflow of both kidneys. FINDINGS: Evaluation is suboptimal as the patient was unable to cooperate or change position for the exam. RIGHT: The kidney is normal in size and echogenicity and measures 9.0 cm. No mass lesion or hydroneph rosis is seen. The main renal artery peak systolic velocity is normal and measures 101 cm/s. The janusz al artery/aorta ratio is not elevated. Arcuate artery restive indices (RI) measure 0.78, 0.78 and 0.7 6 in the superior, mid and inferior aspects, respectively. The renal vein is patent. LEFT: The left kidney is suboptimally visualized. The kidney is normal in size and echogenicity and m easures 7.8 cm. There is a 2.9 cm anechoic cyst at the inferior pole of the left kidney. The left janusz al artery could not be visualized. The left renal vein could not be visualized. Arcuate arteries coul d not be identified for evaluation of resistive indices. IMPRESSION: Evaluation is suboptimal as the patient was unable to cooperate or change position for the exam. No evidence of right renal arterial stenosis. The left renal artery and vein could not be evaluated.
[2025-05-15] MEDS: DONEPEZIL HYDROCHLORIDE 5 MG TAB PO SCH (18:00)
[2025-05-15] MEDS: LOSARTAN POTASSIUM 50 MG TAB PO SCH (21:26)
[2025-05-16] VITALS (7 sets, daily range): BP systolic 104–165; BP diastolic 59–81; PULSE 64–69; RESP 16–17; TEMP 97.5–98.7; O2SAT 98–100
--- NOTE | 2025-05-16 03:36 | DVHSR ---
APPROVED REPORT EXAM: Two-dimensional and M-mode echocardiogram with Doppler and color Doppler. Blood Pressure: 150/65 mmHg INDICATION Chest Pain HTN urgency RISK FACTORS Height: 65, Weight: 88 DIMENSIONS LVDd3.9 (3.8-5.7cm)LA (2D)3.7 (1.9-4.0cm)Aortic Root (2.0-3.7cm) LVDs2.2 (2.5-4.0cm)LA (MM) (1.9-4.0cm)Aortic Cusp Exc (1.5-2.0cm) EF (%) 75.0 (55-70%)Rt. Atrium3.2 (1.9-4.0cm)Asc. Aorta cm Mitral Valve MitralMitral Stenosis E wave0.68m/sMV Mean GR.mmHg A wave1.07m/sMV Peak GR.mmHg E/A ratio0.62D MVAcm2 DECEL [id number] 1/2 Orws30bj IVRTmsDop MVA2.98cm2 Aortic Valve Aortic ValveAortic Stenosis V11.09m/[place] Mean GR.5mmHg V21.43m/[place] Peak GR.8mmHg Tricuspid Valve TR Velocity2.30m/s [id number] Conclusion MILD LVH AND MILD LV DIASTOLIC DYSFUNCTION LV EF IS 75% AND IS NORMAL NORMAL VALVES NO EFFUSION NORMAL RVSP
[2025-05-16 06:15] LABS: Hematocrit 41.0 % (36.0-46.0); Hemoglobin 13.3 g/dL (12.2-16.2); Mean Corpuscular Hemoglobin 30.1 pg (28.0-32.0); Mean Corpuscular Volume 92.4 fL (80.0-100.0); Nucleated Red Blood Cells % 0.3 %
[2025-05-16 06:29] LABS: Chloride 105 mmol/L (98-107); Potassium 3.8 mmol/L (3.5-5.1); Sodium 141 mmol/L (136-145)
[2025-05-16 06:30] LABS: Anion Gap 12 (5-15); Calcium 9.5 mg/dL (8.7-10.4); Carbon Dioxide 24 mmol/L (20-31)
[2025-05-16 06:35] LABS: BUN/Creatinine Ratio 12.3 (10.0-20.0); Blood Urea Nitrogen 8 mg/dL (9-23); Glucose 80 mg/dL (74-106)
[2025-05-16] MEDS ORDERED: NIFE1TAB30 PO (11:25)
[2025-05-16] MEDS ORDERED: LOS25T PO (11:25)
--- NOTE | 2025-05-16 11:27 | DVHDS2 ---
Discharge Summary Date of Admission May 15, 2025 at 02:44 Date of Discharge: May 16, 2025 Labs/Diagnostic Data: Laboratory Results Test 05/16/25 05:59 05/15/25 04:00 05/14/25 23:30 05/14/25 21:59 White Blood Count 4.2 10^3/uL (4.4-10.8) Red Blood Count 4.43 10^6/uL (4.0-5.20) Hemoglobin 13.3 g/dL (12.2-16.2) Hematocrit 41.0 % (36.0-46.0) Mean Corpuscular Volume 92.4 fL (80.0-100.0) Mean Corpuscular Hemoglobin 30.1 pg (28.0-32.0) Mean Corpuscular Hemoglobin Concent 32.6 g/dL (32.0-36.0) Red Cell Distribution Width 12.9 % (11.8-14.3) Platelet Count 121 10^3/uL (140-450) Mean Platelet Volume 10.5 fL (6.9-10.8) Neutrophils (%) (Auto) 70.6 % (37.0-80.0) Lymphocytes (%) (Auto) 19.4 % (10.0-50.0) Monocytes (%) (Auto) 7.0 % (0.0-12.0) Eosinophils (%) (Auto) 1.9 % (0.0-7.0) Basophils (%) (Auto) 1.1 % (0.0-2.0) Neutrophils # (Auto) 3.0 10 ^3/uL (1.6-8.6) Lymphocytes # (Auto) 0.8 10 ^3/uL (0.4-5.4) Monocytes # (Auto) 0.3 10 ^3/uL (0-1.3) Eosinophils # (Auto) 0.1 10 ^3/uL (0-0.8) Basophils # (Auto) 0 10 ^3/uL (0-0.2) Nucleated Red Blood Cells 0.3 % Sodium Level 141 mmol/L (136-145) Potassium Level 3.8 mmol/L (3.5-5.1) Chloride Level 105 mmol/L (98-107) Carbon Dioxide Level 24 mmol/L (20-31) Anion Gap 12 (5-15) Blood Urea Nitrogen 8 mg/dL (9-23) Creatinine 0.65 mg/dL (0.550-1.02) Glomerular Filtration Rate Calc 88 mL/min (>90) BUN/Creatinine Ratio 12.3 (10.0-20.0) Serum Glucose 80 mg/dL (74-106) Calcium Level 9.5 mg/dL (8.7-10.4) Hemoglobin A1c 4.6 % A1C (<5.7) Magnesium Level 2.0 mg/dL (1.6-2.6) Triglycerides Level 68 mg/dL (< 150) Cholesterol Level 180 mg/dL (< 200) LDL Cholesterol 84 mg/dL (< 100) HDL Cholesterol 78 mg/dL (40-59) Thyroid Stimulating Hormone (TSH) 1.82 uIU/mL (0.55-4.78) Urine Color Colorless (Yellow) Urine Clarity Clear (Clear) Urine pH 6.0 (5.0-9.0) Urine Specific [place] 1.003 (1.001-1.035) Urine Protein Negative (Negative) Urine Ketones Negative (Negative) Urine Blood Negative /uL (Negative) Urine Nitrite Negative (Negative) Urine Bilirubin Negative (Negative) Urine Urobilinogen Normal mg/dL (Negative) Urine Leukocyte Esterase Trace /uL (Negative) Urine RBC None seen /hpf (0 - 4) Urine Microscopic WBC 1 /HPF (0-5) Urine Squamous Epithelial Cells Few /hpf (<5) Urine Bacteria None seen /hpf (None Seen) Urine Glucose Normal mg/dL (Normal) Troponin I High Sensitivity 5 ng/L (</=34) Test 05/14/25 20:55 Lactic Acid Level 1.1 mmol/L (0.4-2.0) Total Bilirubin 0.9 mg/dL (0.2-1.0) Aspartate Amino Transferase (AST) 22 U/L (13-40) Alanine Aminotransferase (ALT) < 9 U/L (7-40) Alkaline Phosphatase 67 U/L (46-116) Total Protein 7.3 g/dL (5.7-8.2) Albumin 4.2 g/dL (3.2-4.8) Other Laboratory Tests 05/16/25 05:59 Brief Hx & Hospital Course: Information in this HPI is acquired with the assistance of the patient's grandson, SOURAV via telephone. 84-year-old female with past medical history of hypertension, hyperlipidemia presents with complaints of worsening, generalized weakness over the previous month. Patient endorsed she has been having difficulty getting up. Is also endorsing dizziness. As per the patient's grandson, the patient is currently taking Donepezil 5 mg, simvastatin 20 mg, trazodone 50 mg, Zyrtec and acetaminophen. States he is unable to find any additional medication at the patient's home at this time. The patient states she takes her blood pressure medication's at night. However, does not know what medication she is on. While in the emergency department, the patient's blood pressure was noted to be 244/92 with a heart rate 61. Patient also endorsed chest pressure. For which she was treated with IV Labetolol and sublingual nitroglycerin with improvement. During the emergency department evaluation, CBC is unremarkable. CMP is unremarkable. Troponin negative X2 6/5. CT of the head was added due to the dizziness, which is negative for acute intracranial abnormality. At this time, the patient denies fevers, chills, shortness of breath, palpitations, nausea, vomiting, leg, swelling. 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 Patient started on antihypertensive medications and blood pressure is improved. Patient remained asymptomatic throughout the hospital stay. Therefore it is felt she could be safely discharged home with continued antihypertensive medications as she is prescribed. Home health is being arranged as well as removed blood pressure monitor program being arranged through [facility] and adjust her medications as appropriate. PPROVED REPORT EXAM: Two-dimensional and M-mode echocardiogram with Doppler and color Doppler. Blood Pressure: 150/65 mmHg INDICATION Chest Pain HTN urgency RISK FACTORS Height: 65, Weight: 88 DIMENSIONS LVDd 3.9 (3.8-5.7cm) LA (2D) 3.7 (1.9-4.0cm) Aortic Root (2.0- 3.7cm) LVDs 2.2 (2.5-4.0cm) LA (MM) (1.9-4.0cm) Aortic Cusp Exc (1.5- 2.0cm) EF (%) 75.0 (55-70%) Rt. Atrium 3.2 (1.9-4.0cm) Asc. Aorta cm Mitral Valve Mitral Mitral Stenosis E wave 0.68m/s MV Mean GR. mmHg A wave 1.07m/s MV Peak GR. mmHg E/A ratio 0.6 2D MVA cm2 DECEL Time 276ms PRESS 1/2 Time 74ms IVRT ms Dop MVA 2.98cm2 Aortic Valve Aortic Valve Aortic Stenosis V1 1.09m/s AO Mean GR. 5mmHg V2 1.43m/s AO Peak GR. 8mmHg Tricuspid Valve TR Velocity 2.30m/s RVSP 24mmHg Conclusion MILD LVH AND MILD LV DIASTOLIC DYSFUNCTION LV EF IS 75% AND IS NORMAL NORMAL VALVES NO EFFUSION NORMAL RVSP SIGNED BY: TAJ LUCIA MD SIGNED DATE/TIME: 05/16/25 0336 Consults/Reason for consult Problem List Hypertensive urgency. Rule out structural heart disease. Dyslipidemia. Hypokalemia. Borderline thrombocytopenia. Dementia. Medication noncompliance. History of tobacco use. Assessment/Plan Continued all current supportive medical care. Clonidine, Nifedipine, Losartan. Lipitor. DVT prophylactics. Nitro SL. Morphine for pain management. Additional plan as per the hospital course. Plan discussed with: Patient TAJ LUCIA MD May 16, 2025 20:26 Condition at Discharge: Stable Final Diagnosis/Problems List Malignant hypertension, dementia Discharge Disposition: Home Discharge Instruct/Medications Diet: Consistent carbohydrate, Cardiac 2g Na,low cholest Activity: No Restrictions, As Tolerated Follow Up/Referral: Primary care physician next week for blood pressure checks and to adjust blood pressure medicine Medications: Take the blood pressure medications as prescribed. Scheduled Losartan Potassium (Losartan Potassium), 25 MG PO BID Nifedipine (Nifedipine Er), 1 TAB PO DAILY Discharge Statement: "Patient was advised to return to the ER or call 911 if any headaches, dizziness, shortness of breath, chest pain, abdominal pain, bleeding, fevers, or worsening of medical condition. Patient was counseled about treatment plan, medications, possible side effects, patientverbalized understanding. All questions were answered to the best of my ability. This discharge took greater then 30 minutes in planning, reviewing documentation, counseling the patient, and discussing with other team members." ASSESSMENT ASSESSMENT Assessment Malignant hypertension, dementia AUGUST GODINEZ MD May 16, 2025 11:26
--- NOTE | 2025-05-16 22:57 | DVHPN2 ---
Progress Note - Dictate Date Seen: May 16, 2025 Medical Necessity Reason Pt with a Central, PICC or Fol: No Subjective Patient was seen and evaluated in follow-up. Patient has no new complaints at this time. Patient denies any cardiac symptoms. Patient is cardiac stable for discharge. Telemetry reviewed. vital signs Vital Sign Date Time Temp Pulse Resp B/P (MAP) Pulse Ox O2 Delivery O2 Flow Rate FiO2 05/16/25 16:40 98.0 69 16 104/59 (74) 98 98.0 05/16/25 08:00 Room Air* 0 21 Total Intake and Output 05/15/25 05/15/25 05/16/25 15:00 23:00 07:00 Intake Total 350 ml 300 ml Balance 350 ml 300 ml objective GENERAL: Alert and oriented x 3. No acute distress. Thin appearing. EYES: PERRL, EOMI. Anicteric. HENT: Moist mucous membranes. LUNGS: Clear to auscultation bilaterally. CARDIOVASCULAR: Regular rate and rhythm. ABDOMEN: Soft, nontender and nondistended. EXTREMITIES: No edema. NEUROLOGIC: No focal neurological deficits. SKIN: Warm, dry. laboratory and microbiology Laboratory Tests 05/16/25 05:59 Test 05/16/25 05:59 Range/Units Serum Glucose 80 74-106 mg/dL Problem List Hypertensive urgency. Rule out structural heart disease. Dyslipidemia. Hypokalemia. Borderline thrombocytopenia. Dementia. Medication noncompliance. History of tobacco use. Assessment/Plan Continued all current supportive medical care. Clonidine, Nifedipine, Losartan. Lipitor. DVT prophylactics. Nitro SL. Morphine for pain management. Additional plan as per the hospital course. Plan discussed with: Patient TAJ LUCIA MD May 16, 2025 20:26
--- NOTE | 2025-05-18 07:42 | ECG ---
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
== END 2025-05-16 19:00 | disposition home health service (06) | DRG 305 ==
LOC: ER 19:25 → EDBD 19:25 → OVERFLOW 05-15 02:44 → TELE-WESTW 05-15 04:17
PROVIDERS: ADMIT Hospitalist; ATTEND Hospitalist
DX: I16.0 Hypertensive urgency (principal); E78.5 Hyperlipidemia, unspecified; E87.6 Hypokalemia; F03.90 Unspecified dementia, unspecified severity, without behavioral disturbance, psychotic disturbance, mood disturbance, and anxiety; D69.6 Thrombocytopenia, unspecified; I10 Essential (primary) hypertension; J45.909 Unspecified asthma, uncomplicated; Z91.148 Patient's other noncompliance with medication regimen for other reason; Z90.710 Acquired absence of both cervix and uterus; Z87.891 Personal history of nicotine dependence; Z79.899 Other long term (current) drug therapy
CPT/HCPCS: 36415; 70450; 71045; 80048; 80053; 80061; 81001; 83036; 83605; 83735; 84443; 84484; 85025; 93005; 93306; 93975; 96374; 96375; 96376; 97163; 99291; G0378; J3490